=== PATIENT | female | born 1955 | race Two or more races ===

== ENCOUNTER 2023-10-29 06:33 | Day surgery (SDC) | payer MEDICARE, OTHER, SELFPAY ==
[2023-10-29 11:21] VITALS: BP 117/76
[2023-10-29 11:29] VITALS: BMI 32.0
[2023-10-29 11:32] VITALS: BMI 32.0
[2023-10-29 13:58] VITALS: BP 113/65
[2023-10-29 14:00] VITALS: BP 113/65
[2023-10-29 14:15] VITALS: BP 128/80
[2023-10-29 14:32] VITALS: BP 105/72
== END 2023-10-29 14:46 | disposition home or self-care (01) ==
LOC: SDS 06:33
PROVIDERS: ATTENDING PHYSICIAN Internal Medicine Gastroenterology
DX: K29.70 Gastritis, unspecified, without bleeding (principal); K22.89 Other specified disease of esophagus; K31.7 Polyp of stomach and duodenum; Z87.19 Personal history of other diseases of the digestive system
CPT/HCPCS: 43259; 88305